=== PATIENT | male | born 1985 | race Native Hawaiian/Other Pacific Islander ===

== ENCOUNTER 2021-06-02 19:12 | Emergency (ER) | payer BC ==
[~2021-06-02] VITALS: Ht 175 cm; Wt 65.0 kg
[2021-06-02] MEDS ORDERED: LIDOCAINE 1% INJ 20 ML 20 ML VIAL ONE (19:31)
--- NOTE | 2021-06-02 19:32 | ED EENT ---
History of Present Illness General Stated Complaint: L EYELID LAC FROM TREE BRANCH Source: patient Exam Limitations: no limitations History of Present Illness Date Seen by Provider: Jun 02, 2021 Time Seen by Provider: 19:20 Initial Comments Patient to the ER by private conveyance chief complaint that just prior to arrival he was out jogging and a branch caught him across his left eyelid and he had little blood from it. Some people looked at it told him he needed to come out to the ER because he may need stitches. He had a tetanus vaccine 4 years ago. He is not having any problems with his vision. No fever nausea vomiting Allergies and Home Medications Allergies Coded Allergies: No Known Drug Allergies (Unverified , 06/02/21) Patient Home Medication List Home Medication List Reviewed: Yes Review of Systems Review of Systems Constitutional: No chills, No diaphoresis Eyes: See HPI Ears: No Symptoms Reported Nose: no symptoms reported Mouth: no symptoms reported Throat: no symptoms reported Respiratory: no symptoms reported Cardiovascular: no symptoms reported Past Uzjsnge-Lyjhur-Soqdso Hx Patient Social History Tobacco Use?: No Use of E-Cig and/or Vaping dev: No Substance use?: No Physical Exam Vital Signs Vital Signs - First Documented 06/02/21 19:24 Temp 36.6 Pulse 108 Resp 16 B/P (MAP) 143/100 (114) Pulse Ox 98 O2 Delivery Room Air Height, Weight, BMI Height: '" Weight: lbs. oz. kg; BMI Method: General Appearance: WD/WN, no apparent distress Eyes: left eye normal inspection (Upper eyelid has a 1.5 cm superficial linear laceration hemostatic. No obvious foreign debris.); bilateral eye PERRL, bilateral eye EOMI Ears: bilateral ear auricle normal, bilateral ear canal normal Nose: normal inspection; No active bleeding, No discharge Mouth/Throat: normal mouth inspection, pharynx normal Neck: full range of motion, normal inspection Cardiovascular: normal peripheral pulses, regular rate, rhythm Neurologic/Psychiatric: no motor/sensory deficits, alert, normal mood/affect, oriented x 3 Procedures/Interventions Wound Location: Face Other Wound Location Superior left eyelid. Wound Length (cm): 2 Wound's Depth, Shape: linear, sub Q Wound Explored: clean Irrigated w/ Saline (ccs): 100 Betadine Prep?: Yes (Chlorhexidine) Anesthesia: 1% Lidocaine Volume Anesthetic (ccs): 1 Wound Debrided: minimal Suture: Prolene Suture Size: 6-0 Number of Sutures: 4 Layer Closure?: 1 Sterile Dressing Applied?: No Progress/Results/Core Measures Results/Orders My Orders Orders - AMILCAR CLARK Lidocaine 1% Inj 20 Ml (Xylocaine 1% Inj (06/02/21 19:31) Medications Given in ED Current Medications Medications Dose Ordered Sig/Emre Route Start Time Stop Time Status Last Admin Dose Admin Lidocaine HCl 20 ml STK-MED ONCE .ROUTE 06/02/21 19:31 06/02/21 19:33 DC 06/02/21 19:37 20 ML Vital Signs/I&O 06/02/21 19:24 Temp 36.6 Pulse 108 Resp 16 B/P (MAP) 143/100 (114) Pulse Ox 98 O2 Delivery Room Air Progress Progress Note : Time: 19:31 Progress Note Does not need a tetanus vaccine. Plan to clean the wound, infiltrated with lidocaine and approximate skin edges. Departure Impression Primary Impression: Eyelid laceration, left Qualified Codes: S01.112A - Laceration without foreign body of left eyelid and periocular area, initial encounter Disposition: 01 HOME, SELF-CARE Condition: Stable Departure-Patient Inst. Decision time for Depature: 20:05 Referrals: NO,LOCAL PHYSICIAN (PCP/Family) Primary Care Physician Patient Instructions: Laceration Repair With Stitches (DC) Add. Discharge Instructions: Keep the wound clean with regular soap and water or shampoo. Apply ice for swelling. Tylenol Motrin as necessary for pain. Return to ER for any concerns. Return to the ER in 7 to 10 days to have the sutures removed no additional charge. Cephalexin 1 capsule 3 times a day for 3 days to prevent infection Scripts Cephalexin (Cephalexin) 250 Mg Tablet 250 MG PO TID for 3 Days, #9 TAB 0 Refills Prov: AMILCAR CLARK 06/02/21 AMILCAR CLARK Jun 02, 2021 19:32
[2021-06-02] MEDS ORDERED: CEPH250T PO (20:08)
[2021-06-02 20:22] VITALS: BP 138/98
== END 2021-06-02 20:22 | disposition home or self-care (01) ==
LOC: ER 19:14
DX: S01.112A Laceration without foreign body of left eyelid and periocular area, initial encounter (principal); W20.8XXA Other cause of strike by thrown, projected or falling object, initial encounter
CPT/HCPCS: 12011

== ENCOUNTER 2021-06-12 06:19 | Emergency (ER) | payer BC ==
[~2021-06-12 06:19] MED LIST: CEPH250T PO
[2021-06-12 06:25] VITALS: BP 123/79
== END 2021-06-12 06:37 | disposition home or self-care (01) ==
LOC: EDUNIT# 06:19 → ER 06:27
DX: Z48.02 Encounter for removal of sutures (principal)